=== PATIENT | female | born 1990 | race Caucasian/White ===

== ENCOUNTER 2020-01-15 22:18 | Emergency (ER) | payer MEDICAID ==
[~2020-01-15] VITALS: Ht 165.1 cm; Wt 95.3 kg
[2020-01-15 22:25] VITALS: Ht 165.1 cm; Wt 95.3 kg
[2020-01-16] VITALS: BP 125/86
== END 2020-01-16 | disposition home or self-care (01) ==
LOC: ED 22:18
DX: S83.91XA Sprain of unspecified site of right knee, initial encounter (principal); M25.461 Effusion, right knee; X58.XXXA Exposure to other specified factors, initial encounter; Y93.39 Activity, other involving climbing, rappelling and jumping off; Y92.89 Other specified places as the place of occurrence of the external cause; Y99.8 Other external cause status

== ENCOUNTER 2020-06-12 00:01 | Emergency (ER) | payer MEDICAID, SELFPAY ==
[~2020-06-12] VITALS: Ht 165.1 cm; Wt 95.3 kg
[2020-06-12 00:05] VITALS: BP 119/83; Ht 165.1 cm; Wt 95.3 kg
== END 2020-06-12 00:36 | disposition home or self-care (01) ==
LOC: ED 00:01
DX: J45.909 Unspecified asthma, uncomplicated (principal); Z20.828 Contact with and (suspected) exposure to other viral communicable diseases; Z98.890 Other specified postprocedural states; Z88.1 Allergy status to other antibiotic agents
CPT/HCPCS: U0003-CS